=== PATIENT | female | born 1955 | race Caucasian/White ===

== ENCOUNTER 2023-12-07 15:30 | Outpatient (RCR) | payer MEDICARE, MEDICAID, SELFPAY | END 2024-01-07 10:23 | disposition home or self-care (01) | LOC: ANHDMC 15:30 | PROVIDERS: PCP Internal Medicine; Visit Provider Internal Medicine | DX: E11.65 Type 2 diabetes mellitus with hyperglycemia (principal); Z71.89 Other specified counseling | CPT/HCPCS: 95249; G0108 ==

== ENCOUNTER 2024-02-29 15:30 | Outpatient (RCR) | payer MEDICARE, MEDICAID, SELFPAY | END 2024-03-31 13:58 | disposition home or self-care (01) | LOC: ANHDMC 15:30 | PROVIDERS: PCP Internal Medicine; Visit Provider Internal Medicine | DX: E11.65 Type 2 diabetes mellitus with hyperglycemia (principal); Z71.89 Other specified counseling | CPT/HCPCS: G0108 ==